=== PATIENT | female | born 2005 | race Caucasian/White ===

== ENCOUNTER 2023-05-26 14:23 | Emergency (ER) | payer BC, SELFPAY ==
[2023-05-26 14:24] VITALS: BP 110/81; PULSE 88; RESP 16; TEMP 36.2; O2SAT 97; BMI 25.9
--- NOTE | 2023-05-26 14:44 | CT_ITS ---
STUDY: CT FACIAL BONES WITHOUT CONTRAST REASON FOR EXAM: Female, 18 years old. Trauma RADIATION DOSAGE (If Supplied By Facility): CTDIvol = ( 29.38 ) mGy, DLP = ( 562.15 ) mGycm TECHNIQUE: The patient was scanned in a multi detector CT scanner. Sagittal and coronal images were reconstructed. Individualized dose optimization techniques were used for this CT. COMPARISON: None. FINDINGS: Normal soft tissue structures. Normal orbital coffey and orbital contents. Normal nasal bones and anterior nasal spine. Normal facial bones. There is no demonstrated fracture. Normal visualized paranasal sinuses. CT/Sinus/Facial Bone IMPRESSION: Normal unenhanced CT of the facial bones. Electronically Signed: Stephane Smith MD at 15:15 EDT ,
--- NOTE | 2023-05-26 14:45 | EDS_ITS ---
HPI History of Present Illness Chief Complaint: Head Injury Informant: patient and parent Narrative Narrative: Here with father sent from [facility] for evaluation head injury occurring yesterday playing lacrosse. She has goggles with cage, ball hit her right on the ground with the cheek. No loss of conscious. She was seeing stars as headache nausea. Yesterday vomited x 1. Is feeling off since then. She has had multiple concussions for the last year she recently just cleared this past Thursday from lacrosse injury. Currently nauseated. Sent here for evaluation. Prior similar symptoms: Yes PFSH PFSH Home Medications ondansetron HCl 8 mg tablet 8 mg PO Q8H PRN nausea and vomiting #14 tabs 04/09/23 [Rx Last Taken Unknown] ondansetron 4 mg disintegrating tablet 4 mg PO Q8H PRN PRN Nausea #10 tabs 05/26/23 [Rx Last Taken Unknown] Allergy/AdvReac Type Severity Reaction Status Date / Time No Known Allergies Allergy Verified 05/26/23 14:26 Social History Smoking Status: Never smoker ROS ROS ED Constitutional Constitutional ED: Denies chills, fever(s) or sweats Eyes Eyes: Denies change in vision ENT ENT ED: Reports other; Denies dysphagia or sore throat Cardiovascular Cardiovascular: Denies chest pain, leg edema, palpitations or racing heartbeat Respiratory/Chest Respiratory/Chest: Denies cough, dyspnea or dyspnea on exertion Gastrointestinal Gastrointestinal: Reports nausea; Denies abdominal pain, diarrhea or vomiting Genitourinary Genitourinary ED: Denies dysuria, hematuria or urinary frequency Musculoskeletal Musculoskeletal: Denies back pain, extremity pain or neck pain Integumentary Denies rash or wounds Neurologic Neurologic: Reports headache(s); Denies paresthesias or weakness EXAM Physical Exam Const Vital Signs: 05/26/23 14:24 05/26/23 15:15 Temperature 97.2 F L Temperature Source Temporal Pulse Rate 88 Respiratory Rate 16 Respiratory Effort Normal Non-Labored Respiratory Depth Normal Respiratory Pattern Normal Blood Pressure 110/81 H Blood Pressure Mean 90 Pulse Ox 97 Oxygen Delivery Method Room Air Room Air Positive well nourished and well developed Constitutional Narrative: GCS 15 General Appearance ED: well developed and NAD HEENT Reports moist mucous membranes HEENT Narrative: Tender palpation left zygomatic bone, no depression, no contusion. No proptosis or entrapment. normocephalic Eyes PERRL, EOMs intact bilaterally and conjunctivae normal General Eye ED: Yes normal appearance of both eyes Neck full ROM, no lymphadenopathy and supple Neck Narrative: Paracervical tenderness. No midline tenderness or step-offs. General: tenderness Chest Wall inspection of chest normal and palpation of chest normal Chest: Negative for tenderness Resp normal respiratory effort and normal air movement Effort and Inspection: symmetric chest movement; Negative for respiratory distress Cardio regular rate, regular rhythm and no murmurs Peripheral Pulses: pulses 2+ throughout GI normal to inspection, nondistended, normoactive bowel sounds and non-tender Palpation: Negative for guarding or rebound tenderness present Back/Spine no CVA tenderness and no thoracic nor lumbar tenderness Extremity normal to inspection General Extremety ED: Negative for edema or tenderness General Extremity: Negative for edema Neuro oriented x3, CN's II-XII intact bilaterally and no sensory deficits noted Sensorium / Orientation: awake and alert Skin no rashes or lesions noted and no wounds MDM MDM MDM Narrative Medical decision making narrative: Interventions / MDM: Differential diagnosis: Concussion, contusion Diagnosis considered but do not suspect: Intracranial hemorrhage however PECARN criteria negative. Fracture however images negative. My EKG interpretation: N/A Imaging independently reviewed and interpreted by myself: CT maxillofacial: No fracture, also read by radiology External documents reviewed: N/A Test considered but not ordered:N/A ED course: Patient clinical concussion multiple ones in the past. PECARN neg ative. Father present, understands no need for imaging as she has had not had imagings from her previous concussions. However she has tender in the zygomatic bone, CT imaging ordered for further evaluation. Zofran Tylenol ordered for symptom control. CT scan negative. Nausea improved with Zofran. Concussion precautions with brain rest. Outpatient follow-up. All questions were answered. Re-evaluation: stable Disposition discussed with patient/family/significant other: Patient and family Case discussed with consulting clinician: N/A This note was generated with Setred dictation software. It may contain incorrect words, spelling, and punctuation that were not noted in checking the note before signing. Radiography Diagnostic Testing: Clinical Impression(s) from Imaging Studies Facial/Sinus 05/26/23 14:44 IMPRESSION: Normal unenhanced CT of the facial bones. Electronically Signed: Stephane Smith MD at 15:15 EDT , Discharge Plan Triage Chief Complaint: Head Injury ED Provider: Adelso Goins Dx/Rx/DC Orders Clinical Impression: Contusion of face, Concussion without loss of consciousness, initial encounter Instructions: Concussion Dc, ED Facial Contusion Prescriptions: New ondansetron [ondansetron] 4 mg tablet,disintegrating 4 mg PO Q8H PRN PRN (Reason: Nausea) Qty: 10 0RF No Action ondansetron HCl 8 mg tablet 8 mg PO Q8H PRN (Reason: nausea and vomiting) Qty: 14 0RF Primary Care Provider: [facility] Referrals: [facility]UL[facility] [Other] - 1-2 Weeks [facility] Doctor,Out of [Non-Staff] - Activity Restrictions/Additional Instructions: CT facial bones negative. Brain rest and concussion protocol as discussed. Follow-up with your warehouse trainer. No contact sports until cleared. Use Zofran as needed. Use acetaminophen or Tylenol every 6 hours as needed. Disposition Disposition: Home, Self Care Discharge Date/Time: 05/26/23 15:43
[2023-05-26] MEDS: Ondansetron ODT 4 MG Tablet PO (15:05)
[2023-05-26] MEDS: Acetaminophen 500 MG Tablet 1000 MG PO (15:06)
== END 2023-05-26 15:43 | disposition home or self-care (01) ==
PROVIDERS: Emergency Provider Emergency Medicine; Visit Provider Emergency Medicine
DX: S06.0X0A Concussion without loss of consciousness, initial encounter (principal); W21.09XA Struck by other hit or thrown ball, initial encounter; Y93.65 Activity, lacrosse and field hockey; Y99.8 Other external cause status
CPT/HCPCS: 70486; 99283

== ENCOUNTER → 2023-10-22 | Outpatient (CLI) | payer BC, SELFPAY ==
[2023-10-22 10:52] LABS: Absolute Lymphocyte Count 1.78 X10^3/uL (0.83-4.51); Absolute Neutrophil Count 2.5 X10^3/uL (2.0-7.7); Basophil# 0.04 X10^3/uL; Basophil% 0.8 % (0-1); Eosinophil# 0.26 X10^3/uL; Eosinophils% 5.1 % (0-5); Hematocrit 39.3 % (37-47); Hemoglobin 12.5 g/dL (12.0-15.0); Lymphocyte # 1.78 X10^3/ul (0.83-4.51); Lymphocyte % 34.7 % (19-41); Mean Corp Hgb Conc 31.8 g/dL (32-36); Mean Corpuscular Hgb 28.7 pg (27.0-32.0); Mean Corpuscular Volume 90.3 fL (81-99); Mean Platelet Vol. 9.2 fl (6.2-12.0); Monocyte# 0.53 X10^3/uL; Monocyte% 10.3 % (0-10); NRBC Flagged by Analyzer 0 % (0-5); Neutrophil # 2.46 X10^3/uL (2.7-7.7); Neutrophil % 47.9 % (47-70); Platelet Count 381 K/mm3 (150-450); RBC Distribution Width CV 12.7 % (11.6-14.6); RBC Distribution Width SD 42.1 fl (35.1-43.9); Red Blood Count 4.35 M/mm3 (4.2-5.4); White Blood Count 5.1 K/mm3 (4.4-11.0)
[2023-10-22 11:00] LABS: Internal QC Validated? YES +Cl - CLEAR BKGD; Pregnancy, Serum, hCG Quali. NEGATIVE Negative
[2023-10-22 11:07] LABS: Erythrocyte Sedimentation Rate 4 mm/hr (0-30)
[2023-10-22 11:17] LABS: ALB/GLOB Ratio 1.2 RATIO (0.9-2.4); AST(SGOT) 16 U/L (15-37); Alanine Aminotransfer ALT/SGPT 17 U/L (13-56); Albumin, Serum 4.3 g/dL (3.2-5.0); Alkaline Phosphatase 68 U/L (45-117); Anion Gap 7 (5-15); BUN 13 mg/dL (7-18); BUN/Creat Ratio 14.5 RATIO (10-20); CRP < 2.90 mg/L (0.0-3.0); Calcium,Total 9.4 mg/dL (8.5-10.1); Chloride 107 mmol/L (98-107); EST Glomerular Filtration Rate 85 mL/min (>60); Est Glom Filt Rate - Afr Amer 103 mL/min (>60); Free T3 3.2 pg/mL (2.18-3.98); Globulin 3.6 g/dL (2.2-4.2); Glucose 96 mg/dL (74-106); LDH 151 U/L (84-246); Potassium 3.5 mmol/L (3.5-5.1); Protein, Total 7.9 g/dL (6.4-8.2); Sodium Level 138 mmol/L (136-145); T4 Free Direct 0.94 ng/dL (0.76-1.46); Thyroid Stim Hormone (TSH) 0.771 uIU/mL (0.358-3.740)
[2023-10-26 03:13] LABS: Giardia Lamblia, Stool EIA Negative (Negative); Pancreatic Elastase, Fecal > 800 (>200)
[2023-10-27 03:07] LABS: Anti-Centromere B Ab <0.2 AI (0.0-0.9); Anti-Chromatin <0.2 AI (0.0-0.9); Anti-Jo <0.2 AI (0.0-0.9); Anti-Scleroderma-70 AB <0.2 AI (0.0-0.9); Anti-dsDNA Ab <1 IU/mL (0-9); Beef <0.10 kU/L (Class 0); Chocolate <0.10 kU/L (Class 0); Codfish <0.10 kU/L (Class 0); Corn <0.10 kU/L (Class 0); Egg, Whole <0.10 kU/L (Class 0); Milk (Cow) <0.10 kU/L (Class 0); Mussels <0.10 kU/L (Class 0); Peanut 0.16 kU/L (Class 0/I); Pork <0.10 kU/L (Class 0); RNP Ab <0.2 AI (0.0-0.9); SJOGREN'S Anti-SS-A test < 0.2 AI (0.0-0.9); SJOGREN'S Anti-SS-B test < 0.2 AI (0.0-0.9); Salmon <0.10 kU/L (Class 0); Shrimp <0.10 kU/L (Class 0); Smith Ab <0.2 AI (0.0-0.9); Soybean <0.10 kU/L (Class 0); Tuna <0.10 kU/L (Class 0); Wheat <0.10 kU/L (Class 0)
[2023-10-27 11:09] LABS: ACCA 11 units (0-90); ALCA 23 units (0-60); AMCA 84 units (0-100); Albumin 4.4 g/dL (2.9-4.4); Alpha-1-Globulins 0.3 g/dL (0.0-0.4); Alpha-2-Globulins 0.6 g/dL (0.4-1.0); Cytoplasmic Ab (C-ANCA) <1:20 titer (Neg:<1:20); Endomysial Antibody IgA Negative (Negative); Gamma Globulin 1.2 g/dL (0.4-1.8); Immunoglobulin A 169 mg/dL (87-352); Immunoglobulin E 26 IU/mL (6-495); Immunoglobulin G 1181 mg/dL (586-1602); Immunoglobulin M 151 mg/dL (26-217); PROEL- TOTAL PROTEIN 7.4 g/dL (6.0-8.5); Perinuclear Ab (P-ANCA) <1:20 titer (Neg:<1:20); gASCA 58 units (0-50); t-Transglutaminase IgA <2 U/mL (0-3)
[2023-10-27 20:08] LABS: Calprotectin, Stool 33 ug/g (0-120)
== END | disposition home or self-care (01) ==
DX: K58.9 Irritable bowel syndrome, unspecified (principal)
CPT/HCPCS: 36415; 80053; 82653; 82784; 82785; 83516; 83615; 83630; 83993; 84165; 84439; 84443; 84481; 84703; 85025; 85652; 86003; 86005; 86036; 86140; 86225; 86235; 86255; 86256; 86334; 86671; 87329; 87493; 87506

== ENCOUNTER 2023-11-24 05:20 | Day surgery (SDC) | payer BC, SELFPAY ==
[2023-11-24] VITALS (8 sets, daily range): BP systolic 93–110; BP diastolic 64–78; PULSE 75–101; RESP 14–18; TEMP 36.1–36.9; O2SAT 96–100; BMI 26.6
[2023-11-24 06:07] LABS: Internal QC Validated? YES +Cl - CLEAR BKGD; Pregnancy, Urine Negative Negative
--- NOTE | 2023-11-24 06:28 | PRE.ANES_ITS ---
ASA Classification* ASA Classification ASA Classification: 2 Assessment & Plan Anesthesia* Anesthesia Assessment Anesthesia Assessment: Discussed sedation and/or anesthesia options, risks, benefits, and alternatives with patient/parents/legal guardian/POA. Questions invited. The patient/parents/legal guardian/POA seems to understand and agrees to proceed with anesthesia plan. Reviewed the physical assessment, medical history, allergy history and patient home medications list prior to surgery/procedure/anesthetic and documented any changes. Performed airway and anesthesia risk assessments. Anesthesia Type Anesthesia Type: MAC History Source History Obtained from:: Patient and Chart Anesthesia Focused Assessment* Temperature: 98.5 F Pulse Rate: 75 Blood Pressure: 110/78 Respiratory Rate: 14 Pulse Ox: 98 Airway Assessment Mouth opens: >3 cm Mallampati Score: II Teeth Condition: Intact Neck Range of motion (ROM): Full ROM Focused Labs Anesthesia Preop lab: CBC WBC 5.1 K/mm3 (4.4-11.0) 10/22/23 10:01 RBC 4.35 M/mm3 (4.2-5.4) 10/22/23 10:01 Hgb 12.5 g/dL (12.0-15.0) 10/22/23 10:01 Hct 39.3 % (37-47) 10/22/23 10:01 Plt Count 381 K/mm3 (150-450) 10/22/23 10:01 CHEMISTRY Potassium 3.5 mmol/L (3.5-5.1) 10/22/23 10:01 Sodium 138 mmol/L (136-145) 10/22/23 10:01 BUN 13 mg/dL (7-18) 10/22/23 10:01 Creatinine 0.90 mg/dL (0.55-1.02) 10/22/23 10:01 Glucose 96 mg/dL (74-106) 10/22/23 10:01 TSH 0.771 uIU/mL (0.358-3.740) 10/22/23 10:01 COAG Urine Test Negative Negative 11/24/23 05:44 Pre-Assessment Diagnosis/Proposed Procedure Planned Operative Procedure(s): COLONOSCOPY, EGD Anesthesia History Anesthesia History - radio repairer domestic: Anesthesia History - radio repairer domestic Hx Hospitalization No 11/23/23 08:31 Any Problems With Anesthesia No 11/23/23 08:31 Cholinesterase deficiency No 11/23/23 08:31 You/Your Family Experience No 11/23/23 08:31 fever (hyperthermia) with Relationship Recent Exposure to Contagious No 11/24/23 06:00 Disease Does patient have nerve No 11/23/23 08:31 stimulator Patient instructed to have device shut off --Does patient have Pacemaker No 11/24/23 06:02 or ICD? When Was Last Pacemaker Check QUESTION #4 FULL TEXT: You/Your Family Experience fever (hyperthermia) with Anesthesia Last Oral Intake Last Oral intake: Last Oral Intake NPO since 02:00 11/24/23 06:02 Meds taken in AM with sips of No 11/24/23 06:02 water? Meds patient instructed to take am of surgery PONV PONV - radio repairer domestic: PONV - radio repairer domestic Female Yes 11/23/23 08:31 HX of Motion Sickness No 11/23/23 08:31 HX of N/V After Surgery No 11/23/23 08:31 Non-Smoker Yes 11/23/23 08:31 Duration of Surgery greater No 11/23/23 08:31 than 60 minutes Number of Risk Factors 2 11/23/23 08:31 PONV Score Moderate Risk 11/23/23 08:31 Height & Weight Height & Weight: Anesthesia: Height & Weight Height 5 ft 3 in 11/24/23 06:02 Weight: 68.1 kg 11/24/23 06:02 Body Mass Index (BMI) 26.6 11/24/23 06:02 Respiratory Assessment Respiratory Assessment - radio repairer domestic: Respiratory Tract Infection Hx - radio repairer domestic Hx Respiratory Tract Infection No 11/23/23 08:31 STOP Sleep Apnea STOP Sleep Apnea - radio repairer domestic: STOP Sleep Apnea - radio repairer domestic Hx Hypertension No 11/23/23 08:31 Hx Sleep Apnea No 11/23/23 08:31 CPAP BIPAP Do you snore loudly (louder No 11/23/23 08:31 than talking or can be heard Do you often feel tired/ No 11/23/23 08:31 fatigued/ sleepy during daytime? Has anyone observed you stop No 11/23/23 08:31 breathing during sleep? STOP Results Negative 11/23/23 08:31 QUESTION #5 FULL TEXT : Do you snore loudly (louder than talking or can be heard through closed doors)? 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 Specify any problems Hx of Preganancy in last 3 No 11/23/23 08:31 Months Nurse Filling Out Transfusion [id number] 11/23/23 08:31 & Questions: Date: 11/23/23 11/23/23 08:31 Time: 08:33 11/23/23 08:31 Patient unable to answer at this time (ie. confused, unrespo /Reproduction History /Reproductive History - radio repairer domestic: /Reproductive Hx- radio repairer domestic Hx Now No 11/23/23 08:31 Gestational Age (in weeks): EDC: Hx Hx Para Hx Section SAB No 11/23/23 08:31 PFSH Medical History Wears glasses Anxiety Bipolar disorder Alcohol use H/O multiple concussions Crohn's disease IBS (irritable bowel syndrome) Seasonal allergies Home Medications ?Medication ?Instructions ?Recorded ?Last Taken ?Type dicyclomine 10 mg capsule 10 mg PO TID PRN abdominal pain 10/22/23 11/22/23 Rx #20 caps folic acid 1 mg tablet 1 mg PO QDAY #30 tabs 10/27/23 11/22/23 Rx sulfasalazine 500 mg tablet 1 g (2 x 500 mg) PO BID #120 tabs 11/16/23 11/22/23 Rx Allergy/AdvReac Type Severity Reaction Status Date / Time erythromycin base AdvReac Nausea Verified 11/24/23 05:53 levofloxacin (From Levaquin) AdvReac Nausea Verified 11/24/23 05:53 Family History Mother Anxiety Father Anxiety Social History Smoking Status: Never smoker alcohol intake: current alcohol intake frequency: holidays/special occasions only substance use type: does not use what type of physical activity do you participate in: running frequency: daily Review of Systems (Anesthesia) ROS Narrative System reviewed and no additional complaints, except as documented.
--- NOTE | 2023-11-24 06:30 | IMM_PTH ---
PATIENT: LESTER LANIER LOC: EN U#:[id number] AGE/SX: 18/F ROOM: RE11/24/[address]: Dr. Samuel Obrien DO : 2005 BED: DIS: 11/24/2023 SPEC #: [id number] RECD: 11/24/23 11:36 STATUS: BRADEN REQ #: [id number] CHRISTIE: 11/24/23 06:[address]: Samuel Obrien DEPT: IMMUNOHISTOCHEMISTRY RECD BY: Sanket Mirza ENTERED: 11/24/23 11:36 SP TYPE: IMMUNO BURT DR: Joan Primary Care Phys Tissues: B - Gastric mucous membrane Procedures: H Pylori (initial) PHYSICIAN & INSTITUTION [place] [address] SPECIMEN INFORMATION: Tissue Source: B- Gastric body biopsy Clinical Info: Abdominal symptoms, irritable bowel syndrome Specimen Number: [id number] CPT code: 16912 METHODOLOGY: Deparaffinized sections of prefer/formalin-fixed tissue or PAP/DQ stained slides are incubated with monoclonal/polyclonal antibodies/oligonucleotide probes. Localization is made via biotin free immunoperoxidase method. Appropriate controls are performed and reacted as expected. Results on target cell population are indicated in the following table: RESULTS: ANTIBODY / CLONE RESULT Block B H Pylori (polyclonal) negative These tests were developed and their performance characteristics determined by [facility]. They may not have been cleared or approved by the U.S. Food and Drug Administration. The FDA has determined that such clearance or approval is not necessary. The above immunohistochemical/dualISH markers are ordered and reviewed by the Pathologist. INTERPRETATION: B. Gastric body, biopsy: Negative for Helicobacter pylori organisms. 11/25/2023
--- NOTE | 2023-11-24 06:30 | COLBX_PTH ---
PATIENT: LESTER LANIER LOC: EN U#:[id number] AGE/SX: 18/F ROOM: RE11/24/[address]: Dr. Samuel Obrien DO : 2005 BED: DIS: 11/24/2023 SPEC #: [id number] RECD: 11/24/23 10:11 STATUS: BRADEN GOSIA #: [id number] CHRISTIE: 11/24/23 06:[address]: Samuel Obrien DEPT: SURGICAL PATHOLOGY RECD BY: Paddy Alanis ENTERED: 11/24/23 11:28 SP TYPE: COLON BX OTHR DR: No Primary Care Phys Tissues: A - Duodenum, NOS B - Gastric mucous membrane C - Esophagus, NOS D - Ileum, NOS E - COLON BIOPSY Procedures: Surgery Specimen Level IV HEADER OPERATION: Colonoscopy with biopsy, EGD with biopsy PRE-OP DIAGNOSIS: Abdominal symptoms, irritable bowel syndrome TISSUE SUBMITTED: A- Duodenum biopsy, B- Gastric body biopsy, C- Random esophagus biopsy, D- Terminal ileum biopsy, E- Random colon biopsy MICROSCOPIC DIAGNOSIS A. Duodenum, biopsy: No pathologic change. B. Gastric body, biopsy: Mild chronic gastritis. See comment. C. Esophagus, random biopsy: Fragments of benign squamous mucosa. No evidence of inflammation. D. Terminal ileum, biopsy: No pathologic change. E. Colon, random biopsy: No pathologic change. Aydin 11/25/2023 COMMENT B. The results of immunohistochemistry for Helicobacter pylori will be reported separately ([id number]). MICROSCOPIC DESCRIPTION Slides are reviewed. GROSS DESCRIPTION A. Received in fixative is one container labeled with the patient's name and designated Duodenum biopsy. The specimen consists of multiple irregular fragments of light way soft tissue that in aggregate measure 1.0 x 1.0 x 0.1 cm. The specimen is totally submitted in one cassette. B. Received in fixative is one container labeled with the patient's name and designated Gastric body biopsy. The specimen consists of multiple irregular fragments of light way soft tissue that in aggregate measure 1.0 x 0.5 x 0.1 cm. The specimen is totally submitted in one cassette. C. Received in fixative is one container labeled with the patient's name and designated Random esophagus biopsy. The specimen consists of multiple irregular fragments of light way soft tissue that in aggregate measure 0.8 x 0.5 x 0.1 cm. The specimen is totally submitted in one cassette. D. Received in fixative is one container labeled with the patient's name and designated Terminal ileum biopsy. The specimen consists of multiple irregular fragments of light way soft tissue that in aggregate measure 1.0 x 0.5 x 0.1 cm. The specimen is totally submitted in one cassette. E. Received in fixative is one container labeled with the patient's name and designated Random colon biopsy. The specimen consists of multiple irregular fragments of light way soft tissue that in aggregate measure 1.5 x 0.5 x 0.1 cm. The specimen is totally submitted in one cassette. SJ.mr 11/24/2023 TC:3 CPT:23562y5
--- NOTE | 2023-11-24 06:39 | PCM.HP.BLA ---
History and Physical Date of Admission: 11/24/23 LESTER LANIER, is a 18 F who presents to the office today for establishment with [facility] for complaints of abdominal pain with diarrhea. Reports yesterday waking in AM with chills, unknown temp, nausea and abdominal pain. States for the last week she has been waking to abdominal pain and BM of diarrhea; denies nocturnal waking for diarrhea. States nausea daily after eating or drinking too much, feels that Zofran doesn't help and doesn't like Pepto-Bismol. Reports vomiting bile during lacrosse practice a couple of times a week. Denies difficulty chewing or swallowing. States abdominal pain begins about thirty minutes after eating, states abdominal pain is located on bilateral sides, midaxillary line at lower ribs, Left side worse pain than right. Pain is in a ribbon and unable to use single finger to identify location. Denies family history of autoimmune disorder, but states several close family family have IBS and brother has celiac disease. Reports GI physician in [place], Dr.John Rodriguez, diagnosed her in July of this year with IBS, ruling out celiac disease. Reports last episode of constipation was one week ago; she took small doses of magnesium citrate for two to three days and has had diarrhea ever since. Prior to this constipation was more frequent despite use of Metamucil occasionally, fiber gummies and pre-/probiotics. 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 Reports taking herbal supplements oil of oregano for navjot infection, milk thistle to help protect her liver, and occasional use suzi root for nausea. Reports diet as low FODMAP currently, limiting dairy and excess sugars. Denies food intolerances. Denies alcohol, tobacco, and illicit drug use. Denies chance of , reports progesterone only BCP. States BMs are diarrhea, feel incomplete, will see specks of blood in stool, and stool color is pale yellow. Pain is not relieved with BM. 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 ROS Const Constitutional: Positive for chills and weight change; No anorexia, body ache, excessive sweating, fatigue or fever(s) Eyes Eyes: No change in vision ENT ENT: No abnormal hearing or difficulty swallowing Resp Respiratory: No cough Cardio Cardiology: No excessive sweating Gastro GI: Positive for abdominal pain, bloating, change in bowel habits, constipation, diarrhea, nausea/dyspepsia and vomiting; No belching, change in stool character, coffee ground emesis, cramping, heartburn, difficulty swallowing, feeling full early, excessive flatus, incontinent of stools, Vomiting blood/hematemesis, Blood in stool, loose stools, Black,tarry stools, pain with swallowing or other Genitourinary-Female: No difficulty urinating Musc Musculoskeletal: Positive for muscle weakness; No abnormal gait or joint pain Skin Skin: No yellowing of the eye or itchy eyes Breast Breast: No change in breast shape Neuro Neurology: No abnormal gait or abnormal hearing Psych Psychiatric: Positive for anxiety, No depression, Positive for Behavioral Problems and Positive for inattentiveness Endo Endocrine: Positive for weight change; No cold intolerance, excessive sweating, fatigue or heat intolerance Aller/Imm Allergy/Immunologic: No food intolerance or itchy eyes Miguel/Lymp Hematologic/Lymphatic: No easy bleeding or easy bruising Exam Const General: cooperative, healthy appearing and comfortable Nutritional Appearance: average body habitus HENMT Head: normal to inspection Ears: hearing grossly normal bilaterally Nose: external nose normal Face and sinus: normal facial exam and face symmetric Eyes General: appearance normal, both eyes and all related structures Neck Neck: normal visual inspection and full ROM Neck mass: No Resp Effort & Inspection: normal respiratory effort, able to speak in complete sentences and symmetric chest movement GI Inspection: normal to inspection Auscultation: normal bowel sounds Palpation: soft and no hepatosplenomegaly Skin General: no rashes or lesions noted Neuro General: patient alert, patient awake and patient oriented x3 Cognition: normal cognition Speech: speech normal Extrem General: normal to inspection and full ROM Psych Appearance: grossly normal and well kempt Mental Status: mental status grossly normal Mood: congruent mood Affect: normal affect Speech and Movement: speech and movement normal Attitude: cooperative Thought Process: normal Assessment and Plan Assessment and Plan (1) Abdominal symptoms: (2) IBS (irritable bowel syndrome): Status: Acute Qualifiers: Irritable bowel syndrome type: with diarrhea Qualified Code(s): K58.0 - Irritable bowel syndrome with diarrhea Plan: LESTER LANIER, is a 18 F who presents to the office today for establishment with [facility] for complaints of abdominal pain with diarrhea. Reports yesterday waking in AM with chills, unknown temp, nausea and abdominal pain. States for the last week she has been waking to abdominal pain and BM of diarrhea; denies nocturnal waking for diarrhea. Differential diagnoses include: IBS-D, EPI, dumping syndrome, gastroparesis, bile acid reflux. order IBD/S panel, food allergen, serum hcG order stool studies for enzymes, infective organisms order gastric emptying study Rx dicyclomine 10mg PO TID PRN for abdominal pain and cramping Orders: Orders Allergen, Food Profile 14 Today K58.9 - Irritable bowel syndrome without diarrhea CRP Today K58.9 - Irritable bowel syndrome without diarrhea Immunoglobulins G/A/M/E Today K58.9 - Irritable bowel syndrome without diarrhea BONNIE Comprehensive Panel Today K58.9 - Irritable bowel syndrome without diarrhea ENTERIC PATHOGEN PANEL STOOL Today K58.9 - Irritable bowel syndrome without diarrhea LDH Today K58.9 - Irritable bowel syndrome without diarrhea ANCA Today K58.9 - Irritable bowel syndrome without diarrhea Erythrocyte Sed Rate Today K58.9 - Irritable bowel syndrome without diarrhea Calprotectin, Stool Today K58.9 - Irritable bowel syndrome without diarrhea Free T3 Today K58.9 - Irritable bowel syndrome without diarrhea Pancreatic Elastase, Fecal Today K58.9 - Irritable bowel syndrome without diarrhea CBC W/Diff, Automated Today K58.9 - Irritable bowel syndrome without diarrhea Giardia Lamblia, Stool EIA Today K58.9 - Irritable bowel syndrome without diarrhea Stool Lactoferrin/WBC Today K58.9 - Irritable bowel syndrome without diarrhea CDIFF (PCR) Today K58.9 - Irritable bowel syndrome without diarrhea IBD Expanded Profile Today K58.9 - Irritable bowel syndrome without diarrhea T4 Free Direct Today K58.9 - Irritable bowel syndrome without diarrhea Celiac Disease Profile Today K58.9 - Irritable bowel syndrome without diarrhea JEREMY + Protein Elect, Serum Today K58.9 - Irritable bowel syndrome without diarrhea Thyroid Stim Hormone (TSH) Today K58.9 - Irritable bowel syndrome without diarrhea Comprehensive Metabolic Profil Today K58.9 - Irritable bowel syndrome without diarrhea Gastric Emptying Study Today K58.9 - Irritable bowel syndrome without diarrhea ,Serum,hCG Quali. Today R11.0 - Nausea Medications: New dicyclomine 10 mg PO TID PRN 20 caps 0RF abdominal pain I have examined the patient and the H&P has been reviewed. There are no clinical changes since date of exam.
--- NOTE | 2023-11-24 07:24 | PCM.POST.ANE ---
Anesthesia: Postop Eval I Current Vital Signs Temperature: 97 F Pulse Rate: 97 Blood Pressure: 93/64 Respiratory Rate: 18 Pulse Ox: 96 Oxygen Delivery Method: Room Air Assessment Airway patent: Yes Spontaneous unlabored respirations: Yes Mental status: Asleep nausea: No Vomiting: No Anesthesia Complication: No Fluid Hydration Crystalloid volume administer (ml): 50 Total IV fluid infused: 50 Progress Note Anesthesia document: Postop Eval 1 completed: Yes
--- NOTE | 2023-11-24 07:25 | PCM.POSTANE2 ---
Anesthesia Postop Eval I Sum Postop Eval Completion status Anesthesia document: Postop Eval 1 completed: Yes Anesthesia Postop Eval I Summary Anesthesia Postop Eval I Summary: Anesthesia Postop Eval I: Assessment Summary Airway patent Yes 11/24/23 07:25 [email or web address] Spontaneous unlabored Yes 11/24/23 07:25 [email or web address] respirations Mental status Asleep 11/24/23 07:25 [email or web address] nausea No 11/24/23 07:25 [email or web address] Vomiting No 11/24/23 07:25 [email or web address] Anesthesia Postop Eval I: Fluid Summary Crystalloid volume administer 50 11/24/23 07:25 [email or web address] (ml) Colloids volume administered ( ml) Blood Product volume administered (ml) Total IV fluid infused 50 11/24/23 07:25 [email or web address] Anesthesia Postop Eval I: Summary Notes Anesthesia Complication No 11/24/23 07:25 [email or web address] Anesthesia Complication Comment: Post-operative progress note Anesthesia: Postop Eval II Evaluation Mental status: Awake Pain Level: 0 nausea: No Vomiting: No
--- NOTE | 2023-11-24 07:30 | OP.EGD_ITS ---
Patient Name: Paola Vitale Procedure Date: 11/24/2023 6:09 AM Date of : 2005 Age: 18 Procedure: Upper GI endoscopy Indications: Epigastric abdominal pain Providers: Samuel Obrien DO Referring MD: Samuel Obrien DO Medicines: Monitored Anesthesia Care Patient Profile: This is a 18 year old female. Refer to note in patient chart for documentation of history and physical. Patient has symptoms of chronic global abdominal pain and chronic dyspepsia. Complications: No immediate complications. Procedure: Pre-Anesthesia Assessment: - Prior to the procedure, a History and Physical was performed, and patient medications and allergies were reviewed. The patient is competent. The risks and benefits of the procedure and the sedation options and risks were discussed with the patient. All questions were answered and informed consent was obtained. Patient identification and proposed procedure were verified by the physician in the pre-procedure area. Mental Status Examination: alert and oriented. Airway Examination: normal oropharyngeal airway and neck mobility. Respiratory Examination: clear to auscultation. CV Examination: normal. Prophylactic Antibiotics: The patient does not require prophylactic antibiotics. Prior Anticoagulants: The patient has taken no anticoagulant or antiplatelet agents except for NSAID medication. ASA Grade Assessment: II - A patient with mild systemic disease. After reviewing the risks and benefits, the patient was deemed in satisfactory condition to undergo the procedure. The anesthesia plan was to use monitored anesthesia care (MAC). Immediately prior to administration of medications, the patient was re-assessed for adequacy to receive sedatives. The heart rate, respiratory rate, oxygen saturations, blood pressure, adequacy of pulmonary ventilation, and response to care were monitored throughout the procedure. The physical status of the patient was re-assessed after the procedure. After obtaining informed consent, the endoscope was passed under direct vision. Throughout the procedure, the patient's blood pressure, pulse, and oxygen saturations were monitored continuously. The colonoscope was introduced through the mouth, and advanced to the second part of duodenum. The upper GI endoscopy was accomplished without difficulty. The patient tolerated the procedure well. Scope In: 6:48:45 AM Scope Out: 6:55:50 AM Total Procedure Duration Time 0 hours 7 minutes 5 seconds Findings: The examined esophagus was normal. Biopsies were taken with a cold forceps for histology. Verification of patient identification for the specimen was done. Estimated blood loss was minimal. Patchy mildly erythematous mucosa without bleeding was found in the gastric body. Biopsies were taken with a cold forceps for histology. Verification of patient identification for the specimen was done. Estimated blood loss was minimal. Biopsies were taken with a cold forceps for Helicobacter pylori testing. Verification of patient identification for the specimen was done. Estimated blood loss was minimal. Patchy mildly erythematous mucosa without active bleeding and with no stigmata of bleeding was found in the first portion of the duodenum and in the second portion of the duodenum. Impression: - Normal esophagus. Biopsied. - Erythematous mucosa in the gastric body. Biopsied. - Erythematous duodenopathy. Recommendation: - Discharge patient to home. - Resume previous diet. - Continue present medications. - Await pathology results. Procedure Code(s): --- Professional --- 84208, Esophagogastroduodenoscopy, flexible, transoral; with biopsy, single or multiple CPT copyright 2021 [employer]. All rights reserved. The codes documented in this report are preliminary and upon second steward review may be revised to meet current compliance requirements. Samuel Obrien DO 11/24/2023 7:29:47 AM This report has been signed electronically. Number of Addenda: 0 Note Initiated On: 11/24/2023 6:09 AM
--- NOTE | 2023-11-24 07:31 | OP.CCLET_ITS ---
11/24/2023 No Primary Care Physician Re : Upper GI endoscopy procedure for Paola Vitale Dear Care Physician This procedure was performed on Friday, November 24, 2023. My impressions and recommendations are as follows: Impressions : - Normal esophagus. Biopsied. - Erythematous mucosa in the gastric body. Biopsied. - Erythematous duodenopathy. Recommendations : - Discharge patient to home. - Resume previous diet. - Continue present medications. - Await pathology results. My findings are described in the full procedure note, which is enclosed. If I can be of further assistance, please feel free to contact me at . Sincerely, Samuel Obrien, 11/24/2023 7:29:47 AM This report has been signed electronically.
--- NOTE | 2023-11-24 07:33 | OP.COLON_ITS ---
Patient Name: Paola Vitale Procedure Date: 11/24/2023 6:56 AM Date of : 2005 Age: 18 Procedure: Colonoscopy Indications: Clinically significant diarrhea of unexplained origin Providers: Samuel Obrien DO Referring MD: Samuel Obrien DO Medicines: Monitored Anesthesia Care Patient Profile: This is a 18 year old female. Refer to note in patient chart for documentation of history and physical. Patient has symptoms of chronic global abdominal pain and chronic dyspepsia. Last Colonoscopy: date unknown. Unable to locate last colonoscopy report. Complications: No immediate complications. Procedure: Pre-Anesthesia Assessment: - Prior to the procedure, a History and Physical was performed, and patient medications and allergies were reviewed. The patient is competent. The risks and benefits of the procedure and the sedation options and risks were discussed with the patient. All questions were answered and informed consent was obtained. Patient identification and proposed procedure were verified by the physician in the pre-procedure area. Mental Status Examination: alert and oriented. Airway Examination: normal oropharyngeal airway and neck mobility. Respiratory Examination: clear to auscultation. CV Examination: normal. Prophylactic Antibiotics: The patient does not require prophylactic antibiotics. Prior Anticoagulants: The patient has taken no anticoagulant or antiplatelet agents except for NSAID medication. ASA Grade Assessment: II - A patient with mild systemic disease. After reviewing the risks and benefits, the patient was deemed in satisfactory condition to undergo the procedure. The anesthesia plan was to use monitored anesthesia care (MAC). Immediately prior to administration of medications, the patient was re-assessed for adequacy to receive sedatives. The heart rate, respiratory rate, oxygen saturations, blood pressure, adequacy of pulmonary ventilation, and response to care were monitored throughout the procedure. The physical status of the patient was re-assessed after the procedure. After I obtained informed consent, the scope was passed under direct vision. Throughout the procedure, the patient's blood pressure, pulse, and oxygen saturations were monitored continuously. The colonoscope was introduced through the anus and advanced to the terminal ileum. The colonoscopy was performed without difficulty. The patient tolerated the procedure well. The quality of the bowel preparation was good. The ileocecal valve, appendiceal orifice, and rectum were photographed. Scope In: 6:59:14 AM Scope Withdrawal Time 0 hours 9 minutes 48 seconds Scope Out: 7:15:36 AM Total Procedure Duration Time 0 hours 16 minutes 22 seconds Findings: The digital rectal exam findings include decreased sphincter tone. An area of mildly congested mucosa was found in the recto-sigmoid colon and in the sigmoid colon. Biopsies were taken with a cold forceps for histology. Verification of patient identification for the specimen was done. Estimated blood loss was minimal. The terminal ileum appeared normal. Biopsies were taken with a cold forceps for histology. Verification of patient identification for the specimen was done. Estimated blood loss was minimal. Impression: - Decreased sphincter tone found on digital rectal exam. - Congested mucosa in the recto-sigmoid colon and in the sigmoid colon. Biopsied. - The examined portion of the ileum was normal. Biopsied. Recommendation: - Discharge patient to home. - Resume previous diet. - Continue present medications. - Await pathology results. - Repeat colonoscopy in 5 years for surveillance based on pathology results. Procedure Code(s): --- Professional --- 80195, Colonoscopy, flexible; with biopsy, single or multiple CPT copyright 2021 [employer]. All rights reserved. The codes documented in this report are preliminary and upon qualitative researcher review may be revised to meet current compliance requirements. Samuel Obrien DO 11/24/2023 7:33:10 AM This report has been signed electronically. Number of Addenda: 0 Note Initiated On: 11/24/2023 6:56 AM
--- NOTE | 2023-11-24 07:34 | OP.CCLET_ITS ---
11/24/2023 No Primary Care Physician Re : Colonoscopy procedure for Paola Vitale Dear Care Physician This procedure was performed on Friday, November 24, 2023. My impressions and recommendations are as follows: Impressions : - Decreased sphincter tone found on digital rectal exam. - Congested mucosa in the recto-sigmoid colon and in the sigmoid colon. Biopsied. - The examined portion of the ileum was normal. Biopsied. Recommendations : - Discharge patient to home. - Resume previous diet. - Continue present medications. - Await pathology results. - Repeat colonoscopy in 5 years for surveillance based on pathology results. My findings are described in the full procedure note, which is enclosed. If I can be of further assistance, please feel free to contact me at . Sincerely, Smauel Obrien, 11/24/2023 7:33:10 AM This report has been signed electronically.
== END 2023-11-24 08:51 | disposition home or self-care (01) ==
LOC: EN 05:21 → AC 05:22
PROVIDERS: Anesthesiology; Visit Provider Internal Medicine Gastroenterology
PROC: 0DJD8ZZ Inspection of Lower Intestinal Tract, Via Natural or Artificial Opening Endoscopic (ICD-10-PCS; CPT 45378; principal; 2023-11-24 06:25)
DX: K29.50 Unspecified chronic gastritis without bleeding (principal); R10.13 Epigastric pain; K58.0 Irritable bowel syndrome with diarrhea; K31.89 Other diseases of stomach and duodenum; K63.89 Other specified diseases of intestine
CPT/HCPCS: 43239; 45380; 81025; 88305; 88342; A4216; J2405

== ENCOUNTER → 2023-11-27 | Outpatient (CLI) | payer BC, SELFPAY ==
--- NOTE | 2023-11-27 14:20 | US_ITS ---
HISTORY: dysmenorrhea,family hx of endometriosis. TECHNIQUE: Transabdominal and transvaginal pelvic ultrasound was performed with currie scale and color Doppler evaluation. 95 images. COMPARISON: XR same day. FINDINGS: UTERUS: 8.4 x 3.7 x 4.6 cm. Anteverted. ENDOMETRIAL THICKNESS: 5 mm. RIGHT OVARY: 2.1 x 2.3 x 3.3 cm with small follicles. No adnexal masses. LEFT OVARY: 2 x 2 0.1 x 2.6 cm a small follicles. No adnexal masses. FREE FLUID: None. URINARY BLADDER: Partially distended at 135 cc. US/Pelvic w/ Transvaginal IMPRESSION: Unremarkable pelvic ultrasound. Electronically Signed: Sita Guerra MD at 15:11 EDT ,
== END | disposition home or self-care (01) ==
DX: K58.0 Irritable bowel syndrome with diarrhea (principal)
CPT/HCPCS: 76830; 76856

== ENCOUNTER → 2023-11-28 | Outpatient (CLI) | payer BC, SELFPAY ==
--- NOTE | 2023-11-28 12:00 | RAD_ITS ---
STUDY: X-RAY - ABDOMEN/PELVIS REASON FOR EXAM: Female, 18 years old. sitz marker day 3 TECHNIQUE: Two AP supine views of the abdomen and pelvis. COMPARISON: None. FINDINGS: Normal visualized lung bases. There is a moderate amount of colonic fecal material. There is no demonstrated free abdominal air. The visualized liver, spleen and kidneys are grossly normal in size and morphology. Normal soft tissue structures. Normal visualized osseous structures. No Sitzmarks noted RAD/Abdomen Single View IMPRESSION: Normal x-ray examination of the abdomen and pelvis. No Sitzmarks noted Electronically Signed: Ángel Jett MD at 21:36 EDT ,
== END | disposition home or self-care (01) ==
LOC: RAD 11:52
DX: K59.9 Functional intestinal disorder, unspecified (principal)
CPT/HCPCS: 74018

== ENCOUNTER → 2023-11-30 | Outpatient (CLI) | payer BC, SELFPAY ==
--- NOTE | 2023-11-30 12:25 | RAD_ITS ---
STUDY: X-RAY - ABDOMEN/PELVIS REASON FOR EXAM: Female, 18 years old. sitz marker day 5 TECHNIQUE: Single AP view of the abdomen / pelvis. COMPARISON: 11/28/2023. FINDINGS: Normal visualized lung bases. No Sitz markers are seen. There is an unremarkable bowel gas pattern. There is no demonstrated free abdominal air. The visualized liver, spleen and kidneys are grossly normal in size and morphology. Normal soft tissue structures. Normal visualized osseous structures. RAD/Abdomen Single View IMPRESSION: Normal x-ray examination of the abdomen and pelvis. No Sitz markers are seen. Electronically Signed: Bam Jane MD at 16:47 EDT ,
== END | disposition home or self-care (01) ==
LOC: RAD 12:23
DX: K59.9 Functional intestinal disorder, unspecified (principal)
CPT/HCPCS: 74018

== ENCOUNTER → 2023-12-18 | Outpatient (CLI) | payer BC, SELFPAY | END | disposition home or self-care (01) | DX: K61.2 Anorectal abscess (principal); K59.9 Functional intestinal disorder, unspecified | CPT/HCPCS: 72197; A9575 ==

== ENCOUNTER → 2023-12-30 | Outpatient (CLI) | payer BC, SELFPAY ==
--- NOTE | 2023-12-30 12:16 | NM_ITS ---
CLINICAL: 18-year-old female with history of postprandial abdominal pain and nausea. SEMI-SOLID PHASE 99m Tc SULFUR COLLOID GASTRIC EMPTYING STUDY COMPARISON: None available FINDINGS: The patient was administered 1.2 mCi of 99m Tc sulfur colloid mixed with oatmeal and consumed per os. Image acquisitions in the anterior-posterior projections were obtained for 60 minutes. There is prompt visualization of the stomach. There is no gastroesophageal reflux identified. First order kinetics are maintained throughout the duration of the acquisitions. The T ? linear fit was calculated to be 94.81 minutes, (Normal: 12-56 minutes). NM/Gastric Emptying Study IMPRESSION: 1. ABNORMAL 99m Tc sulfur colloid semi-solid phase (oatmeal) gastric emptying imaging examination. A. There is delayed semi-solid phase gastric emptying compared to normal controls with maintained first order kinetics throughout all components of the examination. (Kylie et al, J Nucl Med Tech 38: 186, 2010). Electronically Signed: Jay Jimenez DO at 10:54 EST ,
== END | disposition home or self-care (01) ==
LOC: NM 12:11
DX: K58.9 Irritable bowel syndrome, unspecified (principal)
CPT/HCPCS: 78264; A9541

== ENCOUNTER 2024-04-13 16:25 | Emergency (ER) | payer BC, SELFPAY ==
[2024-04-13 16:26] VITALS: BP 124/92; PULSE 82; RESP 15; TEMP 36.3; O2SAT 98; BMI 25.1
[2024-04-13] MEDS: Acetaminophen 500 MG Tablet 1000 MG PO (19:45)
--- NOTE | 2024-04-13 20:00 | EX.ED.DYSGE1 ---
HPI History of Present Illness Chief Complaint: Cough Informant: patient and parent Narrative Narrative: Presenting here with father for evaluation. Initially noted complaint was cough however she states this is improving. She reports history of ulcerative colitis followed Dr. Obrien. She has or working diagnosed concerns for endometriosis further workup with gynecology. Started her menstrual period a week ago started having lower abdominal cramping. Bleeding has stopped however still has lower abdominal cramping. Normal bowel movements nonbloody. No abdominal surgeries with her ulcerative colitis. Denies fever chills. Denies nausea or vomiting. Using Tylenol none today states no relief. Reports had a productive cough 2 to 3 weeks ago went to urgent care COVID flu negative. They placed her on Augmentin and she took 1 dose due to stomach being upset stop taking it. Coughing is improving since then. Denies any urinary symptoms. Prior similar symptoms: Yes PFSH PFSH Medical History Wears glasses Anxiety Bipolar disorder Alcohol use H/O multiple concussions Crohn's disease IBS (irritable bowel syndrome) Seasonal allergies Home Medications ?Medication ?Instructions ?Recorded ?Last Taken ?Type oxcarbazepine 300 mg tablet 300 mg PO BID 04/05/24 Unknown History Allergy/AdvReac Type Severity Reaction Status Date / Time erythromycin base AdvReac Nausea Verified 04/13/24 16:28 levofloxacin (From Levaquin) AdvReac Nausea Verified 04/13/24 16:28 Family History Mother Anxiety Father Anxiety Social History Smoking Status: Never smoker alcohol intake: current alcohol intake frequency: holidays/special occasions only substance use type: does not use what type of physical activity do you participate in: running frequency: daily ROS ROS ED Constitutional Constitutional ED: Denies chills, fever(s) or sweats ENT ENT ED: Denies sore throat Cardiovascular Cardiovascular: Denies chest pain, leg edema, palpitations or racing heartbeat Respiratory/Chest Respiratory/Chest: Reports cough; Denies dyspnea or dyspnea on exertion Gastrointestinal Gastrointestinal: Reports abdominal pain; Denies diarrhea, nausea or vomiting Genitourinary Genitourinary ED: Denies dysuria, hematuria or urinary frequency Musculoskeletal Musculoskeletal: Denies back pain, extremity pain or neck pain Integumentary Denies rash or wounds Neurologic Neurologic: Denies headache(s), paresthesias or weakness EXAM Physical Exam Const Vital Signs: 04/13/24 16:26 04/13/24 20:01 04/13/24 20:01 Temperature 97.4 F L Temperature Source Temporal Pulse Rate 82 60 Respiratory Rate 15 18 Respiratory Effort Normal Non-Labored Respiratory Depth Normal Respiratory Pattern Normal Blood Pressure 124/92 H 106/69 Blood Pressure Mean 102 81 Pulse Ox 98 100 Oxygen Delivery Method Room Air Room Air Room Air Positive well nourished and well developed General Appearance ED: well developed and NAD HEENT Reports moist mucous membranes normocephalic and atraumatic Eyes General Eye ED: Yes normal appearance of both eyes Neck full ROM Chest Wall Chest: Negative for tenderness Resp normal respiratory effort and normal air movement Effort and Inspection: symmetric chest movement; Negative for respiratory distress Cardio regular rate, regular rhythm and no murmurs Peripheral Pulses: pulses 2+ throughout GI normal to inspection, nondistended, normoactive bowel sounds GI Narrative: Mild tenderness suprapubic, no guarding or rebound. Palpation: Negative for guarding or rebound tenderness present Extremity normal to inspection General Extremety ED: Negative for edema or tenderness General Extremity: Negative for edema Neuro oriented x3 and no sensory deficits noted Sensorium / Orientation: awake and alert Skin no rashes or lesions noted and no wounds MDM MDM MDM Narrative Medical decision making narrative: Interventions / MDM: Differential diagnosis: Abdominal pain, history of Crohn's, history of endometriosis, Diagnosis considered but do not suspect: Kidney stone however CT negative My EKG interpretation: N/A Imaging independently reviewed and interpreted by myself: CT abdomen pelvis: No acute process also read by radiology. External documents reviewed: Pelvic ultrasound November 2023 normal. MRI pelvis December 2023 with no pelvis or ovarian abnormalities. Test considered but not ordered:N/A ED course: Patient vital stable nonsurgical abdomen. Reported initial cough which is improving therefore likely viral syndrome. She has a suprapubic pain with ulcerative colitis history. No changes in bowel movements no bloody bowel moods for concerns for Crohn's flare. She has a working diagnosis for endometriosis. I discussed likely symptoms after her menstrual period. Discussed obtaining urine for further testing to rule out for any concern for ectopic. She agrees. Will dose with Tylenol in the ED. 2200: CT negative. Reassured of the findings. Patient will continue Tylenol 1 g every 6 hours. Pain more lower pelvis region, discussed she has a working diagnosis endometriosis. Plan diagnostic laparoscopy this summer per patient father as she is currently in sports. They will follow-up with her patient financial coordinator. All questions were answered. Re-evaluation: stable Disposition discussed with patient/family/significant other: Patient and father Case discussed with consulting clinician: N/A This note was generated with [place] [employer] dictation software. It may contain incorrect words, spelling, and punctuation that were not noted in checking the note before signing. Lab Data Attestation: I reviewed the patient's lab results. Labs: Laboratory Results - last 24 hr 04/13/24 19:55 Urine Color Yellow Urine Clarity Clear Urine pH 6.5 Ur Specific [place] 1.015 Urine Protein 15 H Urine Glucose (UA) Normal Urine Ketones Negative Urine Occult Blood 10 H Urine Nitrite Negative Urine Bilirubin Negative Urine Urobilinogen Normal Ur Leukocyte Esterase 25 H Urine RBC 0-5 SEEN Urine WBC 0-5 SEEN Ur Squamous Epith Cells 0-5 SEEN Urine Bacteria 0 SEEN Urine Mucus 0 SEEN Urine Test Negative Radiography Diagnostic Testing: Clinical Impression(s) from Imaging Studies Abdomen/Pelvis CT 04/13/24 20:53 IMPRESSION: UNREMARKABLE NONCONTRAST CT OF THE ABDOMEN AND PELVIS One or more dose reduction techniques were used (e.g., Automated exposure control, adjustment of the mA and/or kV according to patient size, use of iterative reconstruction technique). Reading [facility] Discharge Plan Triage Chief Complaint: Cough ED Provider: Adelso Goins Dx/Rx/DC Orders Clinical Impression: Abdominal pain, Crohn's disease, Hematuria Instructions: Abdominal Pain, ED Hematuria Prescriptions: No Action oxcarbazepine 300 mg tablet 300 mg PO BID Primary Care Provider: Baljeet Pak,Out of Referrals: Baljeet Pak,Out of [Primary Care Provider] - Activity Restrictions/Additional Instructions: CT abdomen pelvis no acute process. Urine with mild hematuria. He had recent pelvic MRI showed no pelvic pathology. You are being worked up for endometriosis. Discussed with your gynecology team. Continue Tylenol up to 1 g every 6 hours. Print Language: Kazakh Disposition Disposition: Home, Self Care
[2024-04-13 20:01] VITALS: BP 106/69; PULSE 60; RESP 18; O2SAT 100
[2024-04-13 20:06] LABS: Bacteria 0 SEEN /hpf (None Seen); Mucous, Urine 0 SEEN /hpf (<or=2+)
[2024-04-13 20:09] LABS: Color, Urine Yellow (Yellow); Glucose, Dipstick Normal (Normal); Ketone-Dipstick Negative (Negative); Leukocyte Esterase-Dipstick 25 /ul (Negative); Nitrite-Dipstick Negative (Negative); Occult Blood-Urine 10 /ul (Negative); Protein-Dipstick 15 mg/dl (Negative); Specific Gravity, Urine 1.015 (1.002-1.030); Urine Bilirubin Dipstick Negative (Negative); Urine Clarity Clear (Clear); Urine Urobilinogen Normal (Normal); Urine pH 6.5 (5.0 - 8.0)
[2024-04-13 20:16] LABS: Internal QC Validated? YES +Cl - CLEAR BKGD
[2024-04-13 20:17] LABS: Pregnancy, Urine Negative Negative
[2024-04-13 20:25] LABS: Red Blood Cells-Urine 0-5 SEEN /hpf (0-5); Squamous Epithelial Cells - UA 0-5 SEEN /hpf (5-10); White Blood Cells 0-5 SEEN /hpf (0-5)
--- NOTE | 2024-04-13 20:53 | CT_ITS ---
PROCEDURE: ABDOMEN/PELVIS WITHOUT CONT REASON FOR EXAM: Back pain hematuria. TECHNIQUE: Abdomen and pelvis CT without intravenous contrast. No oral contrast. COMPARISON: None. FINDINGS: Noncontrast technique limits evaluation of the abdominal and pelvic viscera. Lung bases: Clear Liver: Unremarkable. Gallbladder: Unremarkable. Spleen: Unremarkable. Pancreas: Unremarkable. Adrenals: Unremarkable. Kidneys: Unremarkable. Bladder: Unremarkable. Reproductive Organs: Unremarkable. Bowel: Unremarkable. Appendix: Normal. Lymph nodes: No suspicious lymph node enlargement. Vasculature: Major vascular structures are unremarkable. Peritoneum / Retroperitoneum: No ascites. No free air. Bones: Unremarkable. CT/Abdomen/Pelvis without Cont IMPRESSION: UNREMARKABLE NONCONTRAST CT OF THE ABDOMEN AND PELVIS One or more dose reduction techniques were used (e.g., Automated exposure contr ol, adjustment of the mA and/or kV according to patient size, use of iterative reconstruction technique). Reading Location: [facility]
== END 2024-04-13 22:18 | disposition home or self-care (01) ==
PROVIDERS: Emergency Provider Emergency Medicine; Referring Provider Emergency Medicine; Visit Provider Emergency Medicine
DX: R10.9 Unspecified abdominal pain (principal); K50.90 Crohn's disease, unspecified, without complications; R31.9 Hematuria, unspecified
CPT/HCPCS: 74176; 81001; 81025; 99282

== ENCOUNTER → 2024-05-19 | Outpatient (CLI) | payer BC, SELFPAY ==
--- NOTE | 2024-05-19 12:53 | VDLE_ITS ---
Reason For Study Reason For Study: Left leg pain Procedure LEFT This is a venous duplex using B-mode, color flow and GSV is normal. spectral Doppler. CFV is compressible, spontaneous, phasic, competent, Exam performed in department. and demonstrates normal augmentation. A preliminary report was called and/or faxed to [facility] is compressible, spontaneous, phasic, competent Marlon SULLIVAN and demonstrates normal augmentation. POP V is compressible, spontaneous, phasic, competent and demonstrates normal augmentation. T/P Trunk is compressible. PTV is compressible. LT PerV is compressible. VL/Venous Duplex US, Unilateral Interpretation Summary Deep veins of the left lower extremity are patent and compressible segmentally. There is no evidence of left lower extremity deep vein thrombosis. The left great saphenous vein appears patent an d compressible segmentally. Ordering Physician: Viola Mason Performed By: Mercedez Parra RVT
== END | disposition home or self-care (01) ==
LOC: CVS 12:50
PROVIDERS: Referring Provider Physician Assistant; Visit Provider Physician Assistant
DX: M79.605 Pain in left leg (principal)
CPT/HCPCS: 93971

== ENCOUNTER 2024-12-14 15:57 | Emergency (ER) | payer BC, SELFPAY ==
[2024-12-14 15:58] VITALS: BP 134/99; PULSE 103; RESP 16; TEMP 36.4; O2SAT 97; BMI 26.1
--- NOTE | 2024-12-14 16:18 | EX.ED.DYSGE1 ---
HPI History of Present Illness Chief Complaint: Abd Pain Detail of Chief Complaint: Abdominal pain with nausea, vomiting and diarrhea Informant: patient Onset/Context/Timing Onset: Today Timing: Intermittent and Waxes and wanes Quality: Pain Location: Left side of the abdomen Current Severity: Mild Maximum Severity: Moderate Worsened by: Palpation Relieved by: Nothing Associated Symptoms Associated Symptoms: , Nausea, vomiting and diarrhea Narrative Narrative: Patient is a 19-year-old female. She was sent from the [facility] because of abdominal pain on examination. The physician at the facility felt patient needed a CAT scan. There was no call from that physician to the ER. Patient has history of Crohn's disease. Patient is presently on no medicine because she had a reaction to the the medic medication she was prescribed. She applied for another medicine and has not heard back. She has had nausea, vomiting and frequent bowel movements. Nausea and vomiting started Thursday, December 09. Today she has had significant diarrhea. She is noted mucus in the diarrhea. She denies blood. She denies fever, chills night sweats. She does endorse thirst and dry mouth. She denies orthostatic symptoms. She denies cardiac or respiratory symptoms. Patient had a CT of the abdomen and pelvis April of this year. It revealed no significant abnormality. MRI of the pelvis was obtained and there was no abnormality noted of the pelvic structures. The CT was performed April 13, 2024 and the MRI was December 18, 2023. Patient reports she has a history of endometriosis. Patient is sexually active. Patient had an IUD placed 3 months ago and also uses condoms. Her last normal menstrual period was not normal. She states they have not been normal since the IUD was placed. She denies dysuria, frequency, urgency or hematuria. She denies rash. She denies bumps on her legs. Prior similar symptoms: Yes Recent Illness/Hospitalization: No PFSH PFSH Medical History Endometriosis Wears glasses Anxiety Bipolar disorder Alcohol use H/O multiple concussions Crohn's disease IBS (irritable bowel syndrome) Seasonal allergies Home Medications ?Medication ?Instructions ?Recorded ?Last Taken ?Type oxcarbazepine 300 mg tablet 300 mg PO BID 04/05/24 Unknown History dicyclomine 10 mg capsule 20 mg (2 x 10 mg) PO TIDAC #20 12/14/24 Unknown Rx CAPSULES Allergy/AdvReac Type Severity Reaction Status Date / Time erythromycin base AdvReac Nausea Verified 12/14/24 15:58 levofloxacin (From Levaquin) AdvReac Nausea Verified 12/14/24 15:58 Family History Mother Anxiety Father Anxiety Social History Smoking Status: Never smoker alcohol intake: current alcohol intake frequency: holidays/special occasions only substance use type: does not use what type of physical activity do you participate in: running frequency: daily ROS ROS ED Constitutional Constitutional ED: Denies chills, fever(s), subjective or sweats Eyes Eyes: Denies blurry vision, change in vision or diplopia ENT ENT ED: Denies ear pain, rhinorrhea or sore throat Cardiovascular Cardiovascular: Denies chest pain, orthopnea, palpitations or racing heartbeat Respiratory/Chest Respiratory/Chest: Denies cough, dyspnea, dyspnea on exertion or orthopnea Gastrointestinal Gastrointestinal: Reports abdominal pain, diarrhea, nausea, vomiting and other Details: Nausea and vomiting started Thursday. Diarrhea started today. ; Denies constipation or melena Genitourinary Genitourinary ED: Denies dysuria, hematuria or urinary frequency Musculoskeletal Musculoskeletal: Denies arthralgias or myalgias Integumentary Denies abscess, Abrasions or rash Neurologic Neurologic: Denies headache(s) or paresthesias Psychiatric Psychiatric: Denies anxiety or depression Endocrine Endocrinology: Denies cold intolerance or heat intolerance Hematologic/Lymphatic Hematologic/Lymphatic: Reports systems reviewed and no addt'l complaints, except as documented EXAM Physical Exam Const Vital Signs: 12/14/24 15:58 12/14/24 17:58 Temperature 97.6 F L Temperature Source Temporal Pulse Rate 103 H 67 Respiratory Rate 16 18 Blood Pressure 134/99 H 122/82 H Blood Pressure Mean 110 95 Pulse Ox 97 94 Oxygen Delivery Method Room Air Room Air Positive well nourished and well developed General Appearance ED: well developed and NAD; Negative for cyanotic or diaphoretic HEENT Reports dry mucous membranes HEENT Narrative: Head is atraumatic and normocephalic. Ears are normal. Mouth ED: Yes dry mucous membranes Mouth: dry mucous membranes Eyes PERRL and EOMs intact bilaterally General Eye ED: Negative for pale conjunctiva or scleral icterus Neck no lymphadenopathy, supple and no JVD Resp normal respiratory effort and clear to auscultation bilaterally Cardio regular rate, regular rhythm, S1 normal heart sound, S2 normal heart sound and no murmurs GI non-distended and no masses; Negative for normal to inspection, nondistended, normoactive bowel sounds, non-tender or hepatosplenomegaly GI Narrative: Abdomen is flat. Abdomen is tympanitic. Bowel sounds are diminished. She has tender suprapubic area as well as left lower quadrant. She states this pubic pain is due to her endometriosis. She also has some discomfort right upper quadrant. Negative clinical Garcia sign. Palpation: soft and tender other (Documented in the GI narrative section of the EMR) Back/Spine no CVA tenderness Extremity normal to inspection Extremity Narrative: No evidence of erythema nodosum. General Extremety ED: Negative for edema or tenderness General Extremity: Negative for edema Neuro oriented x3 and CN's II-XII intact bilaterally Sensorium / Orientation: alert Psych mental status grossly normal Skin no rashes or lesions noted, no wounds and skin turgor normal General Skin Exam: elasticity normal; Negative for jaundice MDM MDM MDM Narrative Medical decision making narrative: Clinically patient is dehydrated. She received 1 L normal saline. She was administered Zofran for her nausea and vomiting and Bentyl for her pain. Blood work was obtained. Reluctant to obtain CAT scan since patient does not have peritoneal findings and had several prior CAT scans and is only 19 years of age. History & Record Review Additional record(s) reviewed:: Prior ED visit and Prior labs Lab Data Attestation: I reviewed the patient's lab results. Lab results narrative: CBC is normal. Serum test is negative. Electrolyte panel is normal. Labs: Laboratory Results - last 24 hr 12/14/24 16:24 WBC 8.3 RBC 4.70 Hgb 14.3 Hct 40.7 MCV 86.6 MCH 30.4 MCHC 35.1 RDW Std Deviation 38.6 RDW Coeff of Jenn 12.1 Plt Count 400 MPV 9.2 Immature Gran % (Auto) 0.200 Neut % (Auto) 63.2 Lymph % (Auto) 26.2 [place] % (Auto) 9.6 Eos % (Auto) 0.4 Baso % (Auto) 0.4 Absolute Neuts (auto) 5.3 Absolute Lymphs (auto) 2.18 Nucleated RBC % 0 Sodium 140 Potassium 3.8 Chloride 102 Carbon Dioxide 25.3 Anion Gap 13 BUN 9 Creatinine 0.82 Estim Creat Clear Calc 99.71 Est GFR (MDRD) Non-Af 105 BUN/Creatinine Ratio 11.3 Glucose 97 Calcium 10.2 Serum , Qual NEGATIVE Treatment and Re-Evaluation :: Patient states she feels better after the liter of normal saline and Bentyl. Discussed prescribing prednisone. She does not like the way the prednisone makes her feel and declined. This also may affect her ability to have surgery. She did inform me that her surgery was canceled. Discharge Plan Triage Chief Complaint: Abd Pain ED Provider: Sunny Pagan Dx/Rx/DC Orders Clinical Impression: Exacerbation of Crohn's disease, Colicky abdominal pain, Acute dehydration, Elevated blood pressure reading without diagnosis of hypertension Instructions: ED Crohn's Disease Prescriptions: New dicyclomine 10 mg capsule 20 mg PO TIDAC Qty: 20 0RF No Action oxcarbazepine 300 mg tablet 300 mg PO BID Primary Care Provider: Baljeet Pak,Out of Referrals: Baljeet Doctor,Out of [Primary Care Provider, Medical] - 3-5 Days if not improving Print Language: [place] Island[place] Disposition Disposition: Home, Self Care
[2024-12-14] MEDS: 0.9% Normal Saline (1000mL) 1,000 ML 999 ML IV (16:29)
[2024-12-14 16:39] LABS: Hematocrit 40.7 % (37-47); Hemoglobin 14.3 g/dL (12.0-15.0); Immature Granulocytes Count 0.020 X10^3/uL (0.0-0.0); Mean Corp Hgb Conc 35.1 g/dL (32-36); Mean Corpuscular Volume 86.6 fL (81-99); Mean Platelet Vol. 9.2 fl (6.2-12.0); NRBC Flagged by Analyzer 0 % (0-5); Platelet Count 400 K/mm3 (150-450); RBC Distribution Width CV 12.1 % (11.6-14.6); RBC Distribution Width SD 38.6 fl (35.1-43.9); Red Blood Count 4.70 M/mm3 (4.2-5.4); White Blood Count 8.3 K/mm3 (4.4-11.0)
[2024-12-14 16:41] LABS: Internal QC Validated? YES +Cl - CLEAR BKGD; Record Kit Lot#, Serum Preg. 980607
[2024-12-14 16:44] LABS: Pregnancy, Serum, hCG Quali. NEGATIVE Negative
[2024-12-14 17:58] VITALS: BP 122/82; PULSE 67; RESP 18; O2SAT 94
[2024-12-14 17:59] LABS: Anion Gap 13 (5-15); BUN 9 mg/dL (4-19); BUN/Creat Ratio 11.3 RATIO (10-20); Calcium,Total 10.2 mg/dL (7.6-11.0); Carbon Dioxide 25.3 mmol/L (21.0-32.0); Chloride 102 mmol/L (98-108); Estimated Creatinine Clearance 99.71 ml/min (50-250); Glucose 97 mg/dL (70-99); Potassium 3.8 mmol/L (3.3-5.1)
[2024-12-14 19:01] VITALS: BP 122/82; PULSE 75; RESP 16; TEMP 36.6; O2SAT 99
== END 2024-12-14 19:02 | disposition home or self-care (01) ==
PROVIDERS: Emergency Provider Emergency Medicine; Visit Provider Emergency Medicine
DX: K50.90 Crohn's disease, unspecified, without complications (principal); F31.9 Bipolar disorder, unspecified; E86.0 Dehydration; R03.0 Elevated blood-pressure reading, without diagnosis of hypertension; R10.9 Unspecified abdominal pain
CPT/HCPCS: 80048; 84703; 85025; 96361; 96374; 96376; 99284; A4216; J2405